=== PATIENT | female | born 1975 | race Caucasian/White ===

== ENCOUNTER → 2016-11-19 | Outpatient (CLI) | payer MEDICARE ==
[~2016-11-19] MED LIST: CLARITIN10 MG PO; DARVOCET N 1001 TAB PO; HYDROCODONE BIT1 T11 PO; IMURAN50 MG PO; KEFLEX500 MG PO; MEDROL DOSEPAK4 MG PO; MOTRIN800 MG PO; PIROXICAN20 MG PO; PREDNICOT20 MG PO; PREDNISONE10 MG PO; REMERON45 MG PO; Rocaltrol0.25 MCG PO; TYLENOL W/CODEI1 TA2 PO; VIBRAMYCIN100 MG PO; VICODIN 500 MG-1 TAB PO; ZITHROMAX Z PA250 MG PO
[2016-11-19 11:16] LABS: BILIRUBIN NEGATIVE (NEGATIVE); BLOOD 1+ (NEGATIVE); CLARITY SL CLOUDY (CLEAR); COLOR YELLOW (YELLOW); GLUCOSE NEGATIVE (NEGATIVE); KETONE NEGATIVE (NEGATIVE); NITRITE NEGATIVE (NEGATIVE); PH 7.5 (5.0-9.0); PROTEIN 3+ (NEGATIVE); SPECIFIC GRAVITY 1.015 (1.005-1.030); UROBILINOGEN 0.2 E.U./dl (0.2-1.0)
[2016-11-19 11:23] LABS: BACTERIA TRACE; LEUKO ESTERASE 2+ (NEGATIVE); WBC 41-50 wbc/hpf (0-5)
[2016-11-19 11:28] LABS: BASO % 0.3 % (0.0-1.0); EOS # 0.5 10*3/uL (0.0-0.4); EOS % 7.7 % (1.0-4.0); HEMATOCRIT 27.4 % (37.0-47.0); HEMOGLOBIN 9.1 g/dl (12.0-16.0); LYMPH # 1.9 10*3/uL (1.3-4.4); LYMPH % 29.6 % (27.0-41.0); MEAN CELL VOLUME 102.2 fl (81.0-99.0); MEAN CORPUSCULAR HGB CONC 33.2 g/dl (33.0-37.0); MEAN PLATELET VOLUME 9.3 fl (9.6-12.3); MONO # 0.7 10*3/uL (0.1-1.0); MONO % 10.3 % (3.0-9.0); NEUT # 3.3 10*3/uL (2.3-7.9); NEUT % 51.6 % (47.0-73.0); PLATELET COUNT AUTOMATED 265 10*3/uL (130-400); RED BLOOD COUNT 2.68 10*6/uL (4.10-5.10); RED CELL DISTRI WIDTH 16.1 % (0-14.5); WHITE BLOOD COUNT 6.5 10*3/uL (4.8-10.8)
[2016-11-19 11:49] LABS: ALBUMIN 3.4 gm/dl (3.1-4.5); ALKALINE PHOSPHATASE 51 U/L (45-117); BILIRUBIN, DIRECT < 0.1 mg/dL (0.0-0.2); BILIRUBIN, TOTAL 0.2 mg/dl (0.2-1.0); BUN 42 mg/dl (7-24); CARBON DIOXIDE 15 mmol/L (21-32); CHLORIDE 119 mmol/L (98-107); EST GLOM FILT AFRICAN AMERICAN 11 ml/min; GLUCOSE 101 mg/dL (65-99); LDH 202 U/L (84-246); MAGNESIUM 2.3 mg/dL (1.5-2.1); PHOSPHOROUS 6.9 mg/dL (2.5-4.9); POTASSIUM 4.4 mmol/L (3.5-5.1); SGOT/AST 10 IU/L (3-35); SGPT/ALT 14 U/L (12-78); SODIUM 145 mmol/L (136-145); TOTAL PROTEIN 6.6 gm/dL (6.4-8.2)
[2016-11-19 12:26] LABS: PTH INTACT 830.3 pg/mL (14.0-72.0); VITAMIN D, 25-HYDROXY 20.1 ng/mL (30-100)
[2016-11-20 08:11] LABS: HEPATITIS B SURFACE AB 006395 Non Reactive (.); HEPATITIS C VIRUS ANTIBODY <0.1 s/co (0.0-0.9)
== END | disposition home or self-care (01) ==
LOC: LAB 10:46
PROVIDERS: Internal Medicine Nephrology
DX: N18.5 Chronic kidney disease, stage 5 (principal); R53.83 Other fatigue

== ENCOUNTER → 2017-02-01 | Outpatient (CLI) | payer MEDICARE ==
[2017-02-01 15:12] LABS: BASO % 0.2 % (0.0-1.0); EOS # 0.5 10*3/uL (0.0-0.4); EOS % 7.7 % (1.0-4.0); HEMATOCRIT 26.5 % (37.0-47.0); HEMOGLOBIN 8.8 g/dl (12.0-16.0); LYMPH # 1.3 10*3/uL (1.3-4.4); LYMPH % 20.7 % (27.0-41.0); MEAN CELL VOLUME 100.8 fl (81.0-99.0); MEAN CORPUSCULAR HGB 33.5 pg (27.0-31.0); MEAN CORPUSCULAR HGB CONC 33.2 g/dl (33.0-37.0); MEAN PLATELET VOLUME 9.8 fl (9.6-12.3); MONO # 0.5 10*3/uL (0.1-1.0); MONO % 8.7 % (3.0-9.0); NEUT # 3.8 10*3/uL (2.3-7.9); NEUT % 62.2 % (47.0-73.0); PLATELET COUNT AUTOMATED 222 10*3/uL (130-400); RED BLOOD COUNT 2.63 10*6/uL (4.10-5.10); RED CELL DISTRI WIDTH 15.7 % (0-14.5); WHITE BLOOD COUNT 6.1 10*3/uL (4.8-10.8)
[2017-02-01 15:40] LABS: ALBUMIN 3.2 gm/dl (3.1-4.5); ALKALINE PHOSPHATASE 43 U/L (45-117); BILIRUBIN, DIRECT < 0.1 mg/dL (0.0-0.2); BILIRUBIN, TOTAL 0.2 mg/dl (0.2-1.0); BUN 49 mg/dl (7-24); CARBON DIOXIDE 17 mmol/L (21-32); CHLORIDE 113 mmol/L (98-107); EST GLOM FILT AFRICAN AMERICAN 11 ml/min; GLUCOSE 87 mg/dL (65-99); PHOSPHOROUS 5.9 mg/dL (2.5-4.9); POTASSIUM 5.4 mmol/L (3.5-5.1); SGOT/AST 11 IU/L (3-35); SGPT/ALT 12 U/L (12-78); SODIUM 144 mmol/L (136-145); TOTAL PROTEIN 6.3 gm/dL (6.4-8.2)
[2017-02-01 15:50] LABS: VITAMIN D, 25-HYDROXY 19.2 ng/mL (30-100)
[2017-02-01 15:51] LABS: PTH INTACT 1326.3 pg/mL (14.0-72.0)
[2017-02-02 15:19] LABS: HEPATITIS B SURFACE AB 006395 Non Reactive (.); HEPATITIS C VIRUS ANTIBODY <0.1 s/co (0.0-0.9)
== END | disposition home or self-care (01) ==
LOC: LAB 14:20
PROVIDERS: Internal Medicine Nephrology
DX: N18.5 Chronic kidney disease, stage 5 (principal); E55.9 Vitamin D deficiency, unspecified; N25.81 Secondary hyperparathyroidism of renal origin; T86.12 Kidney transplant failure

== ENCOUNTER 2017-04-10 13:26 | Emergency (ER) | payer MEDICARE ==
[~2017-04-10] VITALS: Ht 149.8 cm; Wt 51.7 kg
[2017-04-10 14:10] LABS: BASO % 0.2 % (0.0-1.0); EOS # 0.6 10*3/uL (0.0-0.4); EOS % 6.3 % (1.0-4.0); HEMATOCRIT 32.7 % (37.0-47.0); HEMOGLOBIN 10.9 g/dl (12.0-16.0); LYMPH # 1.1 10*3/uL (1.3-4.4); MEAN CELL VOLUME 103.5 fl (81.0-99.0); MEAN CORPUSCULAR HGB 34.5 pg (27.0-31.0); MEAN CORPUSCULAR HGB CONC 33.3 g/dl (33.0-37.0); MEAN PLATELET VOLUME 9.2 fl (9.6-12.3); MONO # 0.8 10*3/uL (0.1-1.0); MONO % 9.2 % (3.0-9.0); NEUT # 6.3 10*3/uL (2.3-7.9); NEUT % 71.6 % (47.0-73.0); PLATELET COUNT AUTOMATED 244 10*3/uL (130-400); RED BLOOD COUNT 3.16 10*6/uL (4.10-5.10); RED CELL DISTRI WIDTH 13.5 % (0-14.5); WHITE BLOOD COUNT 8.8 10*3/uL (4.8-10.8)
[2017-04-10] MEDS ORDERED: Motrin,Rufen800 MG PO (15:10)
== END 2017-04-10 18:27 | disposition home or self-care (01) ==
LOC: ED 13:26
PROVIDERS: Internal Medicine
DX: M25.571 Pain in right ankle and joints of right foot (principal); F17.200 Nicotine dependence, unspecified, uncomplicated; Z88.6 Allergy status to analgesic agent; Z79.899 Other long term (current) drug therapy

== ENCOUNTER → 2017-05-21 | Outpatient (CLI) | payer MEDICARE ==
[~2017-05-21] MED LIST changes: +Motrin,Rufen800 MG PO
== END | disposition home or self-care (01) ==
LOC: ORTHO 00:47
DX: M25.562 Pain in left knee (principal)

== ENCOUNTER 2017-10-19 12:40 | Emergency (ER) | payer MEDICARE ==
[~2017-10-19] VITALS: Ht 149.8 cm; Wt 52.2 kg
[2017-10-19] MEDS ORDERED: PREDNISONE50 MG PO (12:53)
== END 2017-10-19 13:15 | disposition home or self-care (01) ==
LOC: ED 12:40
DX: M72.2 Plantar fascial fibromatosis (principal); F17.200 Nicotine dependence, unspecified, uncomplicated; F10.10 Alcohol abuse, uncomplicated; Z88.8 Allergy status to other drugs, medicaments and biological substances; Z88.5 Allergy status to narcotic agent; Z79.899 Other long term (current) drug therapy

== ENCOUNTER 2019-02-05 12:26 | Emergency (ER) | payer MEDICARE, OTHER ==
[~2019-02-05] VITALS: Ht 149.8 cm; Wt 45.4 kg
[~2019-02-05 12:26] MED LIST changes: +PREDNISONE50 MG PO
[2019-02-05] MEDS ORDERED: AUGMENTIN 875875 MG PO (13:08)
[2019-02-05] MEDS ORDERED: IBUPROFEN600 MG PO (13:08)
[2019-02-05] MEDS ORDERED: TESSALON PERLE100 M1 PO (13:08)
== END 2019-02-05 13:15 | disposition home or self-care (01) ==
LOC: ED 12:26
DX: J02.9 Acute pharyngitis, unspecified (principal); Z79.899 Other long term (current) drug therapy; Z94.0 Kidney transplant status; Z88.5 Allergy status to narcotic agent; Z88.6 Allergy status to analgesic agent

== ENCOUNTER 2019-03-20 23:27 | Emergency (ER) | payer MEDICARE, OTHER ==
[~2019-03-20] VITALS: Wt 47.6 kg
[~2019-03-20 23:27] MED LIST changes: +AUGMENTIN 875875 MG PO; +IBUPROFEN600 MG PO; +TESSALON PERLE100 M1 PO
== END 2019-03-21 01:22 | disposition left against medical advice (07) ==
LOC: ED 23:27
DX: M79.672 Pain in left foot (principal); Z79.899 Other long term (current) drug therapy; Z88.6 Allergy status to analgesic agent

== ENCOUNTER 2019-07-19 12:53 | Emergency (ER) | payer MEDICARE, OTHER ==
[~2019-07-19] VITALS: Ht 149.8 cm; Wt 45.4 kg
[2019-07-19] MEDS ORDERED: ULTRAM50 MG PO (15:05)
== END 2019-07-19 15:36 | disposition home or self-care (01) ==
LOC: ED 12:53
DX: S22.41XA Multiple fractures of ribs, right side, initial encounter for closed fracture (principal); R05 Cough; F17.200 Nicotine dependence, unspecified, uncomplicated; Z88.6 Allergy status to analgesic agent; Z79.2 Long term (current) use of antibiotics; Z79.899 Other long term (current) drug therapy; Z94.0 Kidney transplant status; X58.XXXA Exposure to other specified factors, initial encounter; Y93.89 Activity, other specified; Y92.89 Other specified places as the place of occurrence of the external cause; Y99.8 Other external cause status

== ENCOUNTER → 2019-07-23 | Outpatient (CLI) | payer MEDICARE, OTHER ==
[~2019-07-23] MED LIST changes: +ULTRAM50 MG PO
== END | disposition home or self-care (01) ==
LOC: ORTHO 01:17
DX: M17.12 Unilateral primary osteoarthritis, left knee (principal)

== ENCOUNTER → 2019-08-05 | Outpatient (CLI) | payer MEDICARE, OTHER | END | disposition home or self-care (01) | LOC: MRI 13:40 | DX: M17.12 Unilateral primary osteoarthritis, left knee (principal) ==

== ENCOUNTER 2019-10-21 11:49 | Inpatient (IN) | payer MEDICARE, OTHER ==
[~2019-10-21] VITALS: Ht 147.3 cm; Wt 44.8 kg
[2019-10-21 12:00] VITALS: BP 108/105
--- NOTE | 2019-10-21 12:00 | NUR ---
Sister in with pt at tis time
[2019-10-21 12:15] VITALS: BP 140/96
--- NOTE | 2019-10-21 12:30 | NUR ---
Pt appears more calm at this time and no complaints currently of shortness of breath after duoneb treatment.
[2019-10-21 12:46] VITALS: BP 140/96
[2019-10-21 12:52] LABS: BASO % 0.3 % (0.0-1.0); EOS # 0.2 10*3/uL (0.0-0.4); HEMOGLOBIN 11.3 g/dl (12.0-16.0); LYMPH # 0.9 10*3/uL (1.3-4.4); MEAN CORPUSCULAR HGB CONC 31.4 g/dl (33.0-37.0); MEAN PLATELET VOLUME 10.3 fl (9.6-12.3); MONO # 1.4 10*3/uL (0.1-1.0); MONO % 11.4 % (3.0-9.0); NEUT # 9.7 10*3/uL (2.3-7.9); PLATELET COUNT AUTOMATED 247 10*3/uL (130-400); RED BLOOD COUNT 3.53 10*6/uL (4.10-5.10); RED CELL DISTRI WIDTH 16.1 % (0-14.5); WHITE BLOOD COUNT 12.2 10*3/uL (4.8-10.8)
[2019-10-21 13:02] LABS: ACT PARTIAL THROMBO TIME 26.9 SECONDS (20.0-32.1)
[2019-10-21 13:10] LABS: ALBUMIN 3.2 gm/dl (3.1-4.5); CREATININE 6.5 mg/dL (0.55-1.02); POTASSIUM 5.1 mmol/L (3.5-5.1); TOTAL PROTEIN 6.6 gm/dL (6.4-8.2)
[2019-10-21 13:11] LABS: TROPONIN I 0.018 ng/ml (<0.045)
--- NOTE | 2019-10-21 13:22 | NUR ---
Per pt states she is feeling better at this time and she does not use oxygen at home.Oxygen turned off and pt eating protien bar and drinking apple juice at this time.
[2019-10-21 14:42] VITALS: BP 155/85
--- NOTE | 2019-10-21 14:43 | NUR ---
In to see pt at this time.22 Gauge flushed with good blood return and noticed old bloody drainage around site.
--- NOTE | 2019-10-21 14:44 | NUR ---
No wounds per pt and left knee intact
[2019-10-21 16:00] VITALS: BP 134/98
[2019-10-21] MEDS ORDERED: LABETALOL HCL100 MG PO (16:28)
[2019-10-21] MEDS ORDERED: CITALOPRAM HYDR40 MG PO (16:29)
[2019-10-21] MEDS ORDERED: ROPINIROLE HYDRO1 MG PO (16:29)
--- NOTE | 2019-10-21 16:29 | NUR ---
A 44, admitted to , under the services of CAROLINA Marte MD with a diagnosis of copd, renal failure. Chief complaint is sob today, disn't finish dialysis yesterday d/t sob & cough. Patient arrived via stretcher from ER. Monitor applied. Initial assessment completed. Vital signs taken and recorded. CAROLINA MARTE MD notified of admission to the unit. Orders received. See assessment for past medical history, medications and allergies. Patient and/or family oriented to unit. [facility] visitation policy reviewed. Dr Lindsey here NATALIA CHONG
[2019-10-21] MEDS ORDERED: AURYXIA210 MG PO (16:30)
[2019-10-21] MEDS ORDERED: SODIUM BICARBO650 MG PO (16:30)
--- NOTE | 2019-10-21 16:33 | NUR ---
DR CRUZ AWARE OF MED RECONCILIATION WITH PT AT BEDSIDE AND WITH MED RECONCILIATION.
--- NOTE | 2019-10-21 17:03 | NUR ---
DR GROSS ANSWERING SERVICE NOTIFIED OF CONSULT
[2019-10-21 17:31] LABS: ABG BASE EXCESS -1.6 mmol/L (-2.0-2.0); ARTERIAL BLOOD GAS PH 7.391 (7.35-7.45)
--- NOTE | 2019-10-21 17:31 | NUR ---
PT COMPLAINING OF RIB AND BACK PAIN DUE TO COUGHING AND RATES IT A 8/10. PRN TYLENOL PO IS GIVEN AT THIS TIME.. WILL CONTINUE TO MONITOR FOR EFFECTIVNESS
--- NOTE | 2019-10-21 18:05 | NUR ---
ATIVAN 0.5 MG GIVEN FOR ANXIETY PER DR DOBSON'S ORDER.
[2019-10-21 20:00] VITALS: BP 176/84
--- NOTE | 2019-10-21 23:15 | NUR ---
CALLED DR. TUCKER PT ANXIOUS AND REQUESTING ATIVAN. WAS GIVEN ONE TIME ORDER EARLIER. SOB WITH EXERTION.
--- NOTE | 2019-10-21 23:40 | NUR ---
PT RESTING IN BED WITH HOB ELEVATED. RESP-EASY AND REGULAR. OXYGEN IN USE. PT REQUESTING ATIVAN GIVEN IV PER ORDER, SEE EMAR. FOR ANXIETY. CALL LIGHT IN REACH.
[2019-10-22] VITALS: BP 144/84
--- NOTE | 2019-10-22 00:27 | NUR ---
PT RESTING IN BED WITH EYES CLOSED. RESP-EASY AND REGULAR. OXYGEN IN USE. MEDICATION SEEMS TO BE EFFECTIVE. CALL LIGHT IN REACH.
--- NOTE | 2019-10-22 06:00 | NUR ---
RESTING IN BED WITH EYES CLOSED. RESP-EASY AND REGULAR. CALL LIGHT IN REACH.
[2019-10-22 07:10] LABS: HEMATOCRIT 36.2 % (37.0-47.0); HEMOGLOBIN 11.2 g/dl (12.0-16.0); MEAN CELL VOLUME 101.7 fl (81.0-99.0); MEAN CORPUSCULAR HGB 31.5 pg (27.0-31.0); MEAN CORPUSCULAR HGB CONC 30.9 g/dl (33.0-37.0); MEAN PLATELET VOLUME 10.2 fl (9.6-12.3); PLATELET COUNT AUTOMATED 229 10*3/uL (130-400); RED BLOOD COUNT 3.56 10*6/uL (4.10-5.10); WHITE BLOOD COUNT 13.8 10*3/uL (4.8-10.8)
[2019-10-22 07:14] LABS: ACT PARTIAL THROMBO TIME 26.8 SECONDS (20.0-32.1)
[2019-10-22 07:22] LABS: ALBUMIN 2.9 gm/dl (3.1-4.5); CREATININE 6.78 mg/dL (0.55-1.02); FREE T4 0.76 ng/dl (0.76-1.46); PHOSPHOROUS 8.5 mg/dL (2.5-4.9); POTASSIUM 5.6 mmol/L (3.5-5.1); TOTAL PROTEIN 6.6 gm/dL (6.4-8.2)
[2019-10-22 07:27] LABS: THYROID STIM HORMONE (HS) 1.19 uIU/ml (0.358-4.75)
[2019-10-22 07:50] LABS: OVALOCYTES FEW; PLATELET SUFFICIENCY NORMAL (NORMAL); POLYCHROMASIA SLIGHT; TOTAL CELLS COUNTED 100 #CELLS
[2019-10-22 07:51] LABS: BURR CELLS FEW; VITAMIN D, 25-HYDROXY 21.6 ng/mL (30-100)
[2019-10-22 08:00] VITALS: BP 152/96
--- NOTE | 2019-10-22 09:31 | NUR ---
PATIENT NOT AVAILABLE FOR ECHO, IN DIALYSIS.
--- NOTE | 2019-10-22 09:41 | NUR ---
PATIENT INSTRUCTED ON FLUTTER VALVE
--- NOTE | 2019-10-22 11:00 | NUR ---
Automobile Tester in to see patient. She is not currently in her room. Will follow up at a later time.
[2019-10-22 12:00] VITALS: BP 162/88
--- NOTE | 2019-10-22 13:26 | NUR ---
Senior Compensation Analyst in to see patient. She is currently having an echo performed at bedside. Will follow up at a later time.
--- NOTE | 2019-10-22 13:38 | NUR ---
DR. HERRERA NOTIFIED OF CONSULT.
[2019-10-22 16:00] VITALS: BP 136/64
--- NOTE | 2019-10-22 19:10 | NUR ---
REPORT RECEIVED. PT LYING IN BED AT THIS TIME. O2 INTACT. VOICES NO COMPLAINTS, CALL LIGHT IN REACH
--- NOTE | 2019-10-22 19:48 | NUR ---
24 HR chart check completed.
[2019-10-22 20:00] VITALS: BP 135/105
--- NOTE | 2019-10-22 21:35 | NUR ---
ATIVAN GIVEN PER ORDER FOR COMPLAINTS OF ANXIETY. SEE MAR
--- NOTE | 2019-10-22 23:00 | NUR ---
ATIVAN APPEARS EFFECTIVE, PT SLEEPING
[2019-10-23] VITALS: BP 152/83
[2019-10-23 06:37] LABS: HEMATOCRIT 37.4 % (37.0-47.0); HEMOGLOBIN 11.9 g/dl (12.0-16.0); MEAN CELL VOLUME 100.5 fl (81.0-99.0); MEAN CORPUSCULAR HGB CONC 31.8 g/dl (33.0-37.0); PLATELET COUNT AUTOMATED 239 10*3/uL (130-400); RED BLOOD COUNT 3.72 10*6/uL (4.10-5.10); RED CELL DISTRI WIDTH 15.7 % (0-14.5); WHITE BLOOD COUNT 11.7 10*3/uL (4.8-10.8)
[2019-10-23 06:54] LABS: CREATININE 4.45 mg/dL (0.55-1.02)
[2019-10-23 07:08] LABS: POTASSIUM 3.9 mmol/L (3.5-5.1)
[2019-10-23 07:41] LABS: BASOPHILS 1 % (0-1); PLATELET SUFFICIENCY NORMAL (NORMAL); POLYCHROMASIA SLIGHT; TOTAL CELLS COUNTED 100 #CELLS
[2019-10-23 08:00] VITALS: BP 110/78
--- NOTE | 2019-10-23 08:31 | NUR ---
PT REQUESTED AND GIVEN ATIVAN FOR ANXIETY WILL MONITOR
--- NOTE | 2019-10-23 09:30 | NUR ---
PT RESTING IN BED. EYES CLSOED. ATIVAN APPEARS EFFECTIVE. WILL MONITOR
[2019-10-23 12:00] VITALS: BP 130/83
[2019-10-23 16:00] VITALS: BP 130/70
--- NOTE | 2019-10-23 16:06 | NUR ---
PT REQUESTED AND GIVEN ATIVAN FOR C/O ANXIETY WILL MONITOR
--- NOTE | 2019-10-23 19:30 | NUR ---
REPORT RECEIVED. PT LYING IN BED. VOICES NO COMPLAINTS, CALL LIGHT IN REACH
[2019-10-23 20:00] VITALS: BP 135/89
--- NOTE | 2019-10-23 22:00 | NUR ---
ATIVAN GIVEN PER ORDER FOR ANXIETY. SEE MAR
[2019-10-24] VITALS: BP 156/99
--- NOTE | 2019-10-24 | NUR ---
ATIVAN APPEARS EFFECTIVE, PT SLEEPING AT THIS TIME.
[2019-10-24 01:41] VITALS: BP 158/90
--- NOTE | 2019-10-24 02:00 | NUR ---
PT LYING IN BED AT THIS TIME. NO S/S OF DISTRESS. O2 INTACT. CALL LIGHT IN REACH
--- NOTE | 2019-10-24 04:00 | NUR ---
PT SLEEPING AT THIS TIME. CALL LIGHT IN REACH
--- NOTE | 2019-10-24 07:58 | NUR ---
PT IN BED, YELLING UPSET OVER HER DIET. PT DOESNT WANT TO FOLLOW RENAL DIET PT INSTRUCTED THAT SHE WILL HAVE TO DISCUSS THIS WITH HER
[2019-10-24 08:00] VITALS: BP 184/90
--- NOTE | 2019-10-24 08:47 | NUR ---
PT REQUESTED AND GIVEN ATIVAN FOR ANXIETY. WILL MONITOR
[2019-10-24 12:00] VITALS: BP 132/80
[2019-10-24 16:00] VITALS: BP 142/90
--- NOTE | 2019-10-24 19:51 | NUR ---
PATIENT LAYING IN BED WITH VENTURI MASK. STATES SHE IS "NERVOUS" ABOUT HER BRONCH TOMORROW. STATES SHE CANNOT WAIT UNTIL 10 PM TO GET HER STERIODS AND REQUESTING HER ATIVAN. BED IN LOWEST POSITION, CALL LIGHT IN REACH
[2019-10-24 20:00] VITALS: BP 168/92
--- NOTE | 2019-10-24 20:12 | NUR ---
medicated with prn ativan for anxiousness. patient sitting on side of bed moaning with venturi mask stating "i feel like i cannot breath". vitals stable. will monitor
[2019-10-25] VITALS (16 sets, daily range): BP systolic 113–194; BP diastolic 50–121
--- NOTE | 2019-10-25 07:30 | NUR ---
PT TO SURGERY VIA BED
--- NOTE | 2019-10-25 09:00 | NUR ---
Stain Applicator in to see patient. She is currently not in her room. Will follow up at a later time.
--- NOTE | 2019-10-25 10:04 | NUR ---
REPORT GIVEN TO [facility]
--- NOTE | 2019-10-25 10:15 | NUR ---
PATIENT RECIEVED FROM SURGERY AT THIS TIME, PER SURGICAL STAFF THAT ESCORTED PATIENT, PATIENT WAS EXPERIENCING SEVERE ANXIETY AND DIFFICULTY BREATHING POST BRONCH AND WAS SUBSEQUENTLY INTUBATED. PATIENT ARRIVES TO ICU BEING MECHANICALLY VENTILATED WHILE AWAITING FOR THE VENTILATOR TO ARRIVE. PATIENT APPEARS UNCOMFORTABLE AND COUGHING. THE STEEL BOX TOE INSERTER FROM SURGERY ADMINISTERED IV PUSH OF PROPOFOL TO HELP CALM PATIENT. VITAL SIGNS ARE STABLE,SEE SCREEN. ASSESSMENT DONE AT THIS TIME. LYNCH CATHETER AND OG TUBE INSERTED AT THIS TIME PER POLICY. PATIENT TOLERATED WELL. RN WILL CONTINUE TO MONITOR
--- NOTE | 2019-10-25 11:25 | NUR ---
DR GROSS OFFICE AWARE OF PATIENT BEING TRANSFERRED TO ICU AFTER BRONCH, STATE THEY WILL PASS ALONG
--- NOTE | 2019-10-25 11:30 | NUR ---
PRN VERSED GIVEN AT THIS TIME FOR AGITATION. RN WILL MONITOR THIS PATIENT
--- NOTE | 2019-10-25 12:05 | NUR ---
DR HERRERA CALLED IN REGARDING ABG'S. PER ORDER TV CHANGED TO 45O AND TO REPEAT ABFS IN 2HRS.
[2019-10-25 12:07] LABS: ABG BASE EXCESS -2.3 mmol/L (-2.0-2.0); ARTERIAL BLOOD GAS PH 7.331 (7.35-7.45)
--- NOTE | 2019-10-25 12:30 | NUR ---
PATIENT MEDICATED WITH VERSED FOR INCREASED AGITATION. PATIENT PULLING AT RESTRAINTS, COUGHING AND KICKING LEGS IN LEGS. AT ONE POINT PATIENT EVEN ATTEMPTED TO SWING LEGS UP OVER THE SIDERAILS. RN WILL MONITOR FOR EFFECTIVENESS
--- NOTE | 2019-10-25 12:45 | NUR ---
ETT PULLED BACK 2 CMS FROM 24 TO 22 @ THE LIP. POST CXR RESULTS. NO RES DISTRESS NOTED. ALARMS REMAIN AUDIBLE. EQUAL BILATERAL BREATH SOUNDS ASCULTATED. WILL CONTINUE TO MONITOR.
[2019-10-25 13:07] LABS: BILIRUBIN 1+ (NEGATIVE); BLOOD TRACE-INTACT (NEGATIVE); CLARITY CLEAR (CLEAR); COLOR YELLOW (YELLOW); GLUCOSE 1+ (NEGATIVE); KETONE NEGATIVE (NEGATIVE); LEUKO ESTERASE NEGATIVE (NEGATIVE); NITRITE NEGATIVE (NEGATIVE); PH 7.5 (5.0-9.0); UROBILINOGEN 0.2 E.U./dl (0.2-1.0)
[2019-10-25 13:09] LABS: BACTERIA TRACE; MUCOUS TRACE
[2019-10-25 13:39] LABS: BASO % 0.2 % (0.0-1.0); EOS % 0.1 % (1.0-4.0); HEMATOCRIT 35.6 % (37.0-47.0); HEMOGLOBIN 10.8 g/dl (12.0-16.0); LYMPH # 1.2 10*3/uL (1.3-4.4); LYMPH % 9.6 % (27.0-41.0); MEAN CELL VOLUME 103.8 fl (81.0-99.0); MEAN CORPUSCULAR HGB 31.5 pg (27.0-31.0); MEAN CORPUSCULAR HGB CONC 30.3 g/dl (33.0-37.0); MEAN PLATELET VOLUME 10.3 fl (9.6-12.3); MONO # 1.1 10*3/uL (0.1-1.0); MONO % 8.4 % (3.0-9.0); NEUT # 10.2 10*3/uL (2.3-7.9); NEUT % 80.6 % (47.0-73.0); PLATELET COUNT AUTOMATED 249 10*3/uL (130-400); RED BLOOD COUNT 3.43 10*6/uL (4.10-5.10); RED CELL DISTRI WIDTH 15.6 % (0-14.5); WHITE BLOOD COUNT 12.7 10*3/uL (4.8-10.8)
--- NOTE | 2019-10-25 13:39 | NUR ---
VERSED GIVEN FOR AGITATION. PATIENT COUGHING, PULLING AT WRIST RESTRAINTS. AND KICKING LEGS AROUND THE BED.
--- NOTE | 2019-10-25 13:40 | NUR ---
VERSED GIVEN PATIENT WAS SITTING UP IN THE BED
--- NOTE | 2019-10-25 13:45 | NUR ---
DIALYSIS NURSE HERE TO DO TREATMENT. PATIENT IS SCHEDULED Wednesdays AND FRIDAYS BUT PATIENT HAS BEEN VERY NON-COMPLIANT PER DIALYSIS NURSE AND USUALLY ONLY GOES TO DIAYLSIS ONCE A WEEK AND SOMETIMES ONLY ONCE A MONTH.
[2019-10-25 13:51] LABS: ALBUMIN 2.8 gm/dl (3.1-4.5); CREATININE 6.65 mg/dL (0.55-1.02); PHOSPHOROUS 7.8 mg/dL (2.5-4.9); POTASSIUM 5.3 mmol/L (3.5-5.1)
--- NOTE | 2019-10-25 14:30 | NUR ---
PRN VERSED GIVEN AT THIS TIME, PATIENT IS AGITATED, KICKING LEGS AROUND THE BED. RN WILL CONTINUE TO MONITOR
[2019-10-25 14:58] LABS: ABG BASE EXCESS 3.1 mmol/L (-2.0-2.0); ARTERIAL BLOOD GAS PH 7.401 (7.35-7.45)
--- NOTE | 2019-10-25 15:06 | NUR ---
Electronic Parts Salesperson in to see patient. She is currently intubated and receiving dialysis at the bedside. Discharge plan undecided at this time. Will follow up at a later time.
--- NOTE | 2019-10-25 15:30 | NUR ---
PATIENT MEDICATED WITH VERSED PER DRS ORDERS. PATIENT CONTINUES TO BE AGITATED AND RESTLESS. SQUIRMING ALL OVER THE BED. RN WILL MONITOR FOR EFFECTIVENESS
--- NOTE | 2019-10-25 16:12 | NUR ---
SPOKE WITH DR HERRERA REGARDING PATIENTS PLAN OF CARE. STATES TO TRY THE PATIENT ON CPAP AND IF SHE TOLERATES TEN GET A ABG 2 HOURS AFTER THE START OF THE CPAP TRIAL. DR HERRERA AWARE THAT PATIENT IS VERY RESTLESS AND AGITATED. ALSO THE PATIENT IS RECIEVING DIALYSIS.
--- NOTE | 2019-10-25 16:30 | NUR ---
DIALYSIS COMPLETED AT THIS TIME. PER DIALYSIS NURSE THEY TOOK OFF 4KILOS.
--- NOTE | 2019-10-25 17:30 | NUR ---
PATIENT ON CPAP MODE AT THIS TIME. APPEARS TO BE TOLERATING WELL. PULSE OXIMETRY REMAINS IN UPPER 90'S. HEARTRATE REMAINS 80-90'S. PATIENT IS NO LONGER KICKING LEGS AND THRASHING ABOUT BED.
[2019-10-25 19:33] LABS: ABG BASE EXCESS 7.1 mmol/L (-2.0-2.0); ARTERIAL BLOOD GAS PH 7.479 (7.35-7.45)
--- NOTE | 2019-10-25 19:48 | NUR ---
DR. HERRERA CALLED WITH ABG RESULTS. ORDERS RECEIVED.
--- NOTE | 2019-10-25 19:49 | NUR ---
Patient placed back into AC/VC for the evening per Dr. Welch's orders.
--- NOTE | 2019-10-25 20:26 | NUR ---
2000 PT VERY RESTLESS AND TRYING TO SIT UP IN THE BED. DIPRIVAN AT 50MICS. VERSED 5MG IV FOR RESTLESSNESS AND AGITATION AND IMMEDIATLEY EFFECTIVE. NPO. ORAL AND EYE CARE DONE. OGT INTACT WITH TF MAINTAINTED. PLACEMENT CONFIRMED WITH AIR BOLUS/AUSCULTATION. PULSE OX 100% ON 40% FIO2 VIA VENT. WRIST RESTRTAINTS INTACT BILATERALLY. CIRCULATION ADEQUATE. LYNCH PATENT AND DRAINING CLEAR ALEX URINE.
--- NOTE | 2019-10-25 21:35 | NUR ---
2100 VERY RESTLESS AND ATTEMPTING TO REACH FOR ET TUBE.KICKING LEGS. VERSED 5MG IV AND EFFECTIVE.
--- NOTE | 2019-10-25 22:11 | NUR ---
2144 COMPLETE BED BATH GIVEN AND LINENS CHANGED. 2199 VERSED 5MG IV GIVEN FOR AGITATION AND EFFECTIVE. REPOSITIONED.
[2019-10-26] VITALS (11 sets, daily range): BP systolic 115–171; BP diastolic 54–93
--- NOTE | 2019-10-26 00:34 | NUR ---
2300 PT SITTING UP IN THE BED AGAIN. VERSED IV FOR AGITATION. EFFECTIVE.
--- NOTE | 2019-10-26 01:47 | NUR ---
0045 VERSED 5MG IV FOR AGITATION AND RESTLESSNESS. EFFECTIVE.
--- NOTE | 2019-10-26 03:01 | NUR ---
0230 TRYING TO TURN OVER IN THE BED. VWERSED IV FOR THIS. 0300 ATIVAN 0.5MG GIVEN VIA OGT FOR CONT AGITITATION AND RESTLESSNESS. WILL MONITOR.
--- NOTE | 2019-10-26 04:10 | NUR ---
0340 VERSED 5MG IV AGAIN FOR CONT RESTLESSNESS.
[2019-10-26 05:34] LABS: ALBUMIN 2.7 gm/dl (3.1-4.5); CREATININE 4.22 mg/dL (0.55-1.02); PHOSPHOROUS 5.7 mg/dL (2.5-4.9); TOTAL PROTEIN 5.6 gm/dL (6.4-8.2)
--- NOTE | 2019-10-26 05:37 | NUR ---
0535 VERSED 5MG IV FOR CONT AGITATION AND RESTLESSNESS. EFFECTIVE.
[2019-10-26 05:41] LABS: POTASSIUM 4.1 mmol/L (3.5-5.1)
--- NOTE | 2019-10-26 06:08 | NUR ---
RESTING IN BED WITH EYES CLOSED. TF CONT VIA OGT. ET SECURE TO VENT. PULSE OX 100%. DIPRIVAN GTT CONT. NO DISTRESS NOTED. CONDITION GUARDED.
[2019-10-26 06:22] LABS: HEMATOCRIT 33.4 % (37.0-47.0); HEMOGLOBIN 10.5 g/dl (12.0-16.0); MEAN CELL VOLUME 101.5 fl (81.0-99.0); MEAN CORPUSCULAR HGB 31.9 pg (27.0-31.0); MEAN CORPUSCULAR HGB CONC 31.4 g/dl (33.0-37.0); MEAN PLATELET VOLUME 10.3 fl (9.6-12.3); PLATELET COUNT AUTOMATED 226 10*3/uL (130-400); RED BLOOD COUNT 3.29 10*6/uL (4.10-5.10); RED CELL DISTRI WIDTH 15.2 % (0-14.5); WHITE BLOOD COUNT 11.2 10*3/uL (4.8-10.8)
[2019-10-26 06:52] LABS: ATYPICAL LYMPHS 4 % (0-0); OVALOCYTES FEW; TOTAL CELLS COUNTED 100 #CELLS
[2019-10-26 06:53] LABS: PLATELET SUFFICIENCY NORMAL (NORMAL); POLYCHROMASIA SLIGHT
--- NOTE | 2019-10-26 08:18 | NUR ---
Shift chart check completed.24 HR chart check completed.
--- NOTE | 2019-10-26 08:23 | NUR ---
ON ASSESSMENT PT WAS AWAKE AND RESPONSIVE ON DIPRIVAN AT 50MCG/KG/MIN. AFTER REPORT WAS GIVEN AND ASSESSMENT DONE AND ABLE TO STAY IN CLOSE OBSERVATION HER DIPRIVAN WAS TURNED COMPLETELY OFF AND AT 0750 SHE WAS PLACED ON C-PAP5, PS-10. PT EXTREMELY ANXIOUS AND REQUIRES CONSTANT REASSURANCES. FAN PLACED AT BEDSIDE. HER RESTRAINTS ARE ON WITH NO CIRCULATION IMPAIRMENT. LEFT ARM FISTULA POSITIVE THRILL AND BRUIT. TWO HEP LOCKS RT ARM. LYNCH PATENT CLEAR YELLOW URINE. OGT IN PLACE. TUBE FEEDINGS OFF FOR THE WEANING PROCESS. SEE ALL APPROPRIATE INTERVENTIONS.
--- NOTE | 2019-10-26 08:54 | NUR ---
AT PRESENT PT RESTING IN BED, FAN AT THE BEDSIDE. RR 22. HR 88. TOLERATING CPAP. BANGS THE RAILS, POINTING TO THE TUBE. REASSURANCES AND EXPLANATIONS GIVEN.
--- NOTE | 2019-10-26 09:10 | NUR ---
ATIVAN VIA OGT FOR ANXIETY.
--- NOTE | 2019-10-26 09:17 | NUR ---
DR HERRERA HAS VISITED. PT REMAINS ANXIOUS. HE PLACED HER BACK ON A/C AND ORDERED Q1H HALDOL.
--- NOTE | 2019-10-26 09:19 | NUR ---
PER DR HERRERA'S DIRECTION PROPOFOL RESTARTED AT 30MCG/KG/MIN. PT CALMER NOW.
--- NOTE | 2019-10-26 09:30 | NUR ---
Grease Remover in to see patient. She is currently intubated. Discharge plan undecided at this time. Will follow up at a later time.
--- NOTE | 2019-10-26 10:11 | NUR ---
PT APPEARS MUCH MORE COMFORTABLE ON DIPRIVAN AT 30MCG/KG/MIN. SHE'S REPOSITIONED HERSELF TO SIDE AND APPEARS TO BE ASLEEP.
--- NOTE | 2019-10-26 12:48 | NUR ---
NEW IV SITE OBTAINED RT FOREARM. PT RESTING COMFORTABLY. DIPRIVAN IS AT 20MCG/KG/MIN. 3 OF 4 DOSES OF HALDOL HAVE BEEN GIVEN.
--- NOTE | 2019-10-26 13:03 | NUR ---
HALDOL AGAIN GIVEN PER ORDER. DIPRIVAN TO 15MCG/KG/MIN.
[2019-10-26 13:05] LABS: ACID FAST SPEC PROCESSING Concentration (.)
--- NOTE | 2019-10-26 13:23 | NUR ---
MESSAGE LEFT AT DR HERRERA'S OFFICE TO CALL ME BACK FOR CONDITION UPDATE.
--- NOTE | 2019-10-26 19:53 | NUR ---
PT TOLERATING CPAP AT THIS TIME. PULSE OX 100% RR 16/MIN. SHE IS DOZING BUT OPENS HER EYES TO VERBAL AND TACTILE STIMULATION. BODY RELAXED.
[2019-10-26 20:54] LABS: ABG BASE EXCESS 3.8 mmol/L (-2.0-2.0); ARTERIAL BLOOD GAS PH 7.428 (7.35-7.45)
--- NOTE | 2019-10-26 20:59 | NUR ---
DR HERRERA NOTIFIED OF ABG'S AND PT DROWSINESS. ORDERS RECEIVED AND RESP DEPT NOTIFIED.
--- NOTE | 2019-10-26 22:31 | NUR ---
HALDOL GIVEN AT 2200 FOR RELAXATION EFFECTIVE. PT'S COMPLETE BATH AND BED LINEN CHANGE DONE. PT ASSISTED, WAS APPROPRIATE, COOPERATIVE, AND CALM.
--- NOTE | 2019-10-26 23:00 | NUR ---
RETURNED TO PREVIOUS AC VENT SETTINGS.
[2019-10-27] VITALS: BP 157/72
--- NOTE | 2019-10-27 02:20 | NUR ---
PT ANXIOUS, ALARMING VENT, ASSISTED WITH POSITIONING, FAN PLACED PER PT REQUEST, ENCOURAGED PT TO SLOW BREATHING AND REMAIN CALM. MEDICATED WITH HALDOL ORDERED.
--- NOTE | 2019-10-27 02:27 | NUR ---
HALDOL WAS NOT EFFECTIVE. PT SITTING STRAIGHT UP, SLAPPING BED WITH BOTH HANDS AND THRASHING HEAD SIDE TO SIDE. HR 110'S. MEDICATED WITH VERSED.
--- NOTE | 2019-10-27 03:38 | NUR ---
VERSED BECAME EFFECTIVE AT APPROXIMATELY 0300 WHEN PT STOPPED GAGGING AND BITING ON ETT AND RESPIRATIONS SLOWED SHE CALMED DOWN. SHE IS NOW CALM BUT AWAKENS AND COMMUNICATES EASILY.
[2019-10-27 04:00] VITALS: BP 166/67
--- NOTE | 2019-10-27 04:51 | NUR ---
HALDOL ORDERED AT 0445 TO PROMOTE RELAXATION PT AGITATED WITH AM LAB DRAWS AND ANXIETY IN GENERAL.
[2019-10-27 05:31] LABS: ALBUMIN 2.7 gm/dl (3.1-4.5); CREATININE 5.79 mg/dL (0.55-1.02); PHOSPHOROUS 8.5 mg/dL (2.5-4.9); POTASSIUM 4.5 mmol/L (3.5-5.1); TOTAL PROTEIN 5.9 gm/dL (6.4-8.2)
[2019-10-27 05:58] LABS: MEAN CORPUSCULAR HGB 31.4 pg (27.0-31.0); MEAN CORPUSCULAR HGB CONC 31.4 g/dl (33.0-37.0); MEAN PLATELET VOLUME 10.1 fl (9.6-12.3); PLATELET COUNT AUTOMATED 241 10*3/uL (130-400); WHITE BLOOD COUNT 10.4 10*3/uL (4.8-10.8)
[2019-10-27 06:23] LABS: ATYPICAL LYMPHS 1 % (0-0); OVALOCYTES FEW; TOTAL CELLS COUNTED 100 #CELLS
[2019-10-27 06:24] LABS: PLATELET SUFFICIENCY NORMAL (NORMAL); SCHISTOCYTES FEW
[2019-10-27 07:46] LABS: ABG BASE EXCESS 1.6 mmol/L (-2.0-2.0); ARTERIAL BLOOD GAS PH 7.395 (7.35-7.45)
[2019-10-27 08:00] VITALS: BP 170/74
--- NOTE | 2019-10-27 08:00 | NUR ---
DIALYSIS STARTED. PT RESTING. AWAKENS WITH STIMULI. PT REMAINS INTUBATED AND SEDATED WITH PRN HALDOL AND VERSED. DIFFUSE RHONCHI NOTED IN LUNG WAGNER. OGT PLACEMENT VERIFIED WITH AN AIR BOLUS. ABD SOFT WITH ACTIVE BOWEL SOUNDS. LYNCH PATENT FOR CLEAR, STRAW COLORED URINE. NO PERIPHERAL EDEMA NOTED.
--- NOTE | 2019-10-27 09:35 | NUR ---
PT AWAKE, RESTLESS AND AGITATED. MEDICATED PT PER PRN ORDER WITH VERSED.
--- NOTE | 2019-10-27 09:44 | NUR ---
DR HERRERA IN TO SEE PT.
--- NOTE | 2019-10-27 09:50 | NUR ---
PT RESTING. EARLIER VERSED EFFECTIVE.
[2019-10-27 12:00] VITALS: BP 150/79
--- NOTE | 2019-10-27 12:00 | NUR ---
RESP. THERAPIST CHANGED VENT SETTINGS TO CPAP 12/25. WILL CONTINUE TO MONITOR PT.
--- NOTE | 2019-10-27 12:13 | NUR ---
EDUCATED PT ON CPAP TRIAL AND POST EXTUBATION. PT TOLERATING CPAP WELL AT THIS TIME.
--- NOTE | 2019-10-27 12:41 | NUR ---
PT RESTING. RESP RATE 16, POX 99%, HR 77. PT TOLERATING CPAP WELL AT THIS TIME. WILL CONTINUE TO MONITOR PT.
[2019-10-27 13:56] LABS: ABG BASE EXCESS 5.9 mmol/L (-2.0-2.0); ARTERIAL BLOOD GAS PH 7.447 (7.35-7.45)
--- NOTE | 2019-10-27 14:34 | NUR ---
PT EXTUBATED TO BIPAP AFTER ORDERS RECEIVED FROM DR HERRERA. PT EDUUCATED ON WEARING BIPAP AND NPO STATUS. PT VERBALIZED UNDERSTANDING.
[2019-10-27 16:00] VITALS: BP 142/76
--- NOTE | 2019-10-27 17:55 | NUR ---
PT TAKEN OFF OF BIPAP BY RESP.THERAPIST. 2L NASAL CANNULA APPLIED. POX 95% PT TOLERATING LIQUIDS WELL. DINNER ORDERED.
[2019-10-27 20:00] VITALS: BP 160/85
--- NOTE | 2019-10-27 20:53 | NUR ---
EATING MULTIPLE SNACKS. TOLERATING NASAL CANNULA WELL. APPEARS TO BE CALM AND PLEASANT AT THIS TIME.
--- NOTE | 2019-10-27 21:07 | NUR ---
PT DECLINING BATH AND SHAMPOO AT THIS TIME.
--- NOTE | 2019-10-27 22:48 | NUR ---
PT DOZING. BODY RELAXED.
[2019-10-28] VITALS: BP 119/51
--- NOTE | 2019-10-28 01:32 | NUR ---
2316 PATIENT REFUSING BIPAP. 2L NC IN USE. SPO2 96%
[2019-10-28 04:00] VITALS: BP 142/61
[2019-10-28 06:16] LABS: BASO % 0.2 % (0.0-1.0); EOS # 0.1 10*3/uL (0.0-0.4); EOS % 0.8 % (1.0-4.0); HEMATOCRIT 39.3 % (37.0-47.0); HEMOGLOBIN 12.2 g/dl (12.0-16.0); LYMPH # 2.8 10*3/uL (1.3-4.4); LYMPH % 20.1 % (27.0-41.0); MEAN CELL VOLUME 99.7 fl (81.0-99.0); MEAN PLATELET VOLUME 9.7 fl (9.6-12.3); MONO # 1.4 10*3/uL (0.1-1.0); MONO % 10.4 % (3.0-9.0); NEUT # 9.2 10*3/uL (2.3-7.9); PLATELET COUNT AUTOMATED 244 10*3/uL (130-400); RED BLOOD COUNT 3.94 10*6/uL (4.10-5.10); RED CELL DISTRI WIDTH 14.5 % (0-14.5); WHITE BLOOD COUNT 13.7 10*3/uL (4.8-10.8)
[2019-10-28 06:49] LABS: ALBUMIN 2.6 gm/dl (3.1-4.5); POTASSIUM 3.7 mmol/L (3.5-5.1)
[2019-10-28 06:53] LABS: CREATININE 4.21 mg/dL (0.55-1.02); PHOSPHOROUS 4.3 mg/dL (2.5-4.9); TOTAL PROTEIN 5.6 gm/dL (6.4-8.2)
[2019-10-28 08:00] VITALS: BP 164/87
--- NOTE | 2019-10-28 08:00 | NUR ---
PT AAOX3. VSS. LUNG WAGNER DIM. BUT CLEAR. POX 95% ON 2L NC. PT STATES SHE HAS A NONPRODUCTIVE COUGH. LYNCH PATENT FOR CLEAR, STRAW COLORED URINE. NO PERIPHERAL EDEMA NOTED. PT DENIES COMPLAINTS AT PRESENT TIME. NO ACUTE DISTRESS NOTED.
--- NOTE | 2019-10-28 09:18 | NUR ---
DR HERRERA IN TO SEE PT.
--- NOTE | 2019-10-28 09:34 | NUR ---
PT REFUSED A BATH AT THIS TIME. SHE STATED SHE WANTS TO SLEEP. WILL OFFER AGAIN LATER.
--- NOTE | 2019-10-28 11:00 | NUR ---
DR CORREA IN TO SEE PT.
[2019-10-28 12:00] VITALS: BP 166/84
--- NOTE | 2019-10-28 12:18 | NUR ---
DR GROSS IN TO SEE PT.
--- NOTE | 2019-10-28 13:33 | NUR ---
Digital Communications Manager in to talk to patient. Patient states lives at home with her mother. There are 4 steps in the home. Physician: Dr. Rudd [facility] Home health services: none Patient's level of ADLs: INDEPENDENT Patient has working utilities: yes DME: none Follow-up physician's appointment after d/c: she prefers to make her own follow up appt after discharge Does patient want to access PORTAL?: no Discharge plan discussed with patient. She lives at home and takes care of her mother. She is independent in her ADLs and ambulation. Discussed short term SNF and home health care services and she denies any home needs. When medically stable she will be discharged to home. She states her sister will provide transportation on discharge. She is HD MWF, chair time is 1030, and [employer] transports. ELISHA SOTO
[2019-10-28 16:00] VITALS: BP 150/66
--- NOTE | 2019-10-28 16:02 | NUR ---
PT EATING DINNER. PT DENIES COMPLAINTS. NO ACUTE DISTRESS NOTED.
--- NOTE | 2019-10-28 16:39 | NUR ---
LYNCH D/C'D INTACT. PARTIAL BATH GIVEN. BED LINENS CHANGED. PT UP TO CHAIR WITH MINIMAL ASSIST.
[2019-10-28 20:00] VITALS: BP 137/80
--- NOTE | 2019-10-28 23:54 | NUR ---
PATIENT REFUSING TO WEAR BIPAP
[2019-10-29] VITALS: BP 138/69
--- NOTE | 2019-10-29 00:45 | NUR ---
A 44, admitted to ICCU, under the services of CAROLINA Marte MD with a diagnosis of ETOH WITHDRAWL. Chief complaint is WITHDRAWL FROM ETOH. Patient arrived via wheelchair from ER. Monitor applied. Initial assessment completed. Vital signs taken and recorded. CAROLINA MARTE MD notified of admission to the unit. Orders received. See assessment for past medical history, medications and allergies. Patient and/or family oriented to unit. [facility] visitation policy reviewed. Clothing/patient valuable form completed. BAKARI DON
[2019-10-29 05:09] LABS: ALBUMIN 2.5 gm/dl (3.1-4.5); CREATININE 5.15 mg/dL (0.55-1.02); PHOSPHOROUS 4.3 mg/dL (2.5-4.9); TOTAL PROTEIN 5.7 gm/dL (6.4-8.2)
[2019-10-29 07:29] LABS: HEMATOCRIT 38.5 % (37.0-47.0); HEMOGLOBIN 12.2 g/dl (12.0-16.0); MEAN CORPUSCULAR HGB CONC 31.7 g/dl (33.0-37.0); MEAN PLATELET VOLUME 10.3 fl (9.6-12.3); PLATELET COUNT AUTOMATED 283 10*3/uL (130-400); RED BLOOD COUNT 3.81 10*6/uL (4.10-5.10); RED CELL DISTRI WIDTH 14.3 % (0-14.5); WHITE BLOOD COUNT 17.2 10*3/uL (4.8-10.8)
[2019-10-29 07:56] LABS: PLATELET SUFFICIENCY NORMAL (NORMAL); TOTAL CELLS COUNTED 100 #CELLS
[2019-10-29 08:00] VITALS: BP 152/84
--- NOTE | 2019-10-29 09:00 | NUR ---
Tobacco Drier Operator in to see patient. No new needs or request at this time. She denies any home needs. When medically stable she will be discharged to home.
[2019-10-29 12:00] VITALS: BP 123/84
--- NOTE | 2019-10-29 15:55 | NUR ---
ASSESSMENT FOR HOME O2 SPO2 @ REST: 94% ON ROOM AIR HR 90 BP 124/80 SPO2 WITH EXERTION: ROOM AIR 88% HR 96 SPO2 WITH EXERTION: 2L NC 95% HR 90 RECOVERY SPO2 96% ON 2L NC HR 94 BP 120/64 PT. REQUIRED 2L OF SUPPLEMENTAL O2 DURING AMBULATION. RN NOTIFIED.
[2019-10-29 16:00] VITALS: BP 120/64
[2019-10-29 20:00] VITALS: BP 116/75
[2019-10-30] VITALS: BP 157/76
--- NOTE | 2019-10-30 02:11 | NUR ---
24 hour chart check complete
[2019-10-30 06:59] LABS: HEMATOCRIT 38.3 % (37.0-47.0); HEMOGLOBIN 11.9 g/dl (12.0-16.0); MEAN CELL VOLUME 99.7 fl (81.0-99.0); MEAN CORPUSCULAR HGB CONC 31.1 g/dl (33.0-37.0); MEAN PLATELET VOLUME 9.9 fl (9.6-12.3); PLATELET COUNT AUTOMATED 299 10*3/uL (130-400); RED BLOOD COUNT 3.84 10*6/uL (4.10-5.10); WHITE BLOOD COUNT 18.7 10*3/uL (4.8-10.8)
[2019-10-30 07:16] LABS: ALBUMIN 2.7 gm/dl (3.1-4.5); POTASSIUM 3.8 mmol/L (3.5-5.1)
[2019-10-30 07:21] LABS: CREATININE 4.34 mg/dL (0.55-1.02); PHOSPHOROUS 4.1 mg/dL (2.5-4.9); TOTAL PROTEIN 5.8 gm/dL (6.4-8.2)
[2019-10-30 07:41] LABS: TOTAL CELLS COUNTED 100 #CELLS
[2019-10-30 07:42] LABS: OVALOCYTES FEW; PLATELET SUFFICIENCY NORMAL (NORMAL); SCHISTOCYTES FEW
[2019-10-30 07:44] LABS: BASOPHILS 1 % (0-1)
[2019-10-30 12:00] VITALS: BP 127/70
[2019-10-30 16:00] VITALS: BP 143/74
[2019-10-30] MEDS ORDERED: PREDNISONE10 MG PO (16:34)
[2019-10-30] MEDS ORDERED: DOXYCYCLINE100 M3 PO (16:34)
--- NOTE | 2019-10-30 17:40 | NUR ---
PT STANDING AT NURSES STATION AGITATED AND DEMANDING TO LEAVE PT STATED SHE "WAITYED ALL DAY FOR THE O2 AND WONT HAVE A RIDE HOME." NOTIFIED TYPE ROLLING MACHINE OPERATOR GARY WELL RT MIGUE CARTER. MIGUE CARTER CALLED [employer] AND THEY STATED LABORATORY IMMUNOLOGIST WAS ENROUTE. PT DEMANDED O2 TO BE DELIVERED AT HOME. MIGUE INFORMED LABORATORY IMMUNOLOGIST TO DELIVER TO PT ADDRESS. PT LEFT THE BUILDING WITH O2 DOCUMENTATION FOR O2 COMPANY.
--- NOTE | 2019-10-30 17:45 | NUR ---
Discharge instructions reviewed with patient/family. Patient receptive and verbalizes understanding. Follow-up care arranged. Written instructions given to patient/family. BENJAMIN SILVERMAN
== END 2019-10-30 20:10 | disposition home or self-care (01) | DRG 871 ==
LOC: ED 11:49 → 4E 14:21 → ICCU 14:21 → EDHOLD 14:21 → 4E 15:21 → ICCU 15:52 → 4E 15:52 → ICCU 15:52 → 4E 10-29 18:18
PROVIDERS: Emergency Medicine; Hospitalist; Internal Medicine Critical Care Medicine; Internal Medicine Nephrology; ADMIT Internal Medicine
PROC: 5A1D70Z Performance of Urinary Filtration, Intermittent, Less than 6 Hours Per Day (ICD-10-PCS; principal; 2019-10-20)
PROC: 5A1D70Z Performance of Urinary Filtration, Intermittent, Less than 6 Hours Per Day (ICD-10-PCS; 2019-10-22)
PROC: 0BC68ZZ Extirpation of Matter from Right Lower Lobe Bronchus, Via Natural or Artificial Opening Endoscopic (ICD-10-PCS; 2019-10-25)
PROC: 0BC98ZZ Extirpation of Matter from Lingula Bronchus, Via Natural or Artificial Opening Endoscopic (ICD-10-PCS; 2019-10-25)
PROC: 0BCB8ZZ Extirpation of Matter from Left Lower Lobe Bronchus, Via Natural or Artificial Opening Endoscopic (ICD-10-PCS; 2019-10-25)
PROC: 5A1D70Z Performance of Urinary Filtration, Intermittent, Less than 6 Hours Per Day (ICD-10-PCS; 2019-10-25)
PROC: 0BC88ZZ Extirpation of Matter from Left Upper Lobe Bronchus, Via Natural or Artificial Opening Endoscopic (ICD-10-PCS; 2019-10-25)
PROC: 5A1945Z Respiratory Ventilation, 24-96 Consecutive Hours (ICD-10-PCS; 2019-10-25)
PROC: 0BC18ZZ Extirpation of Matter from Trachea, Via Natural or Artificial Opening Endoscopic (ICD-10-PCS; 2019-10-25)
PROC: 0BC58ZZ Extirpation of Matter from Right Middle Lobe Bronchus, Via Natural or Artificial Opening Endoscopic (ICD-10-PCS; 2019-10-25)
PROC: 0BH17EZ Insertion of Endotracheal Airway into Trachea, Via Natural or Artificial Opening (ICD-10-PCS; 2019-10-25)
PROC: 0BC78ZZ Extirpation of Matter from Left Main Bronchus, Via Natural or Artificial Opening Endoscopic (ICD-10-PCS; 2019-10-25)
PROC: 0BC38ZZ Extirpation of Matter from Right Main Bronchus, Via Natural or Artificial Opening Endoscopic (ICD-10-PCS; 2019-10-25)
PROC: 0BC48ZZ Extirpation of Matter from Right Upper Lobe Bronchus, Via Natural or Artificial Opening Endoscopic (ICD-10-PCS; 2019-10-25)
PROC: 5A1D70Z Performance of Urinary Filtration, Intermittent, Less than 6 Hours Per Day (ICD-10-PCS; 2019-10-27)
PROC: 5A09357 Assistance with Respiratory Ventilation, Less than 24 Consecutive Hours, Continuous Positive Airway Pressure (ICD-10-PCS; 2019-10-27)
PROC: 5A1D70Z Performance of Urinary Filtration, Intermittent, Less than 6 Hours Per Day (ICD-10-PCS; 2019-10-29)
DX: A41.9 Sepsis, unspecified organism (principal); J18.9 Pneumonia, unspecified organism; N17.0 Acute kidney failure with tubular necrosis; N18.6 End stage renal disease; J96.22 Acute and chronic respiratory failure with hypercapnia; J96.21 Acute and chronic respiratory failure with hypoxia; I12.0 Hypertensive chronic kidney disease with stage 5 chronic kidney disease or end stage renal disease; T86.12 Kidney transplant failure; E46 Unspecified protein-calorie malnutrition; E87.2 Acidosis; F17.213 Nicotine dependence, cigarettes, with withdrawal; E83.39 Other disorders of phosphorus metabolism; D63.8 Anemia in other chronic diseases classified elsewhere; D72.819 Decreased white blood cell count, unspecified; E87.5 Hyperkalemia; G25.81 Restless legs syndrome; D53.9 Nutritional anemia, unspecified; J20.9 Acute bronchitis, unspecified; Y83.0 Surgical operation with transplant of whole organ as the cause of abnormal reaction of the patient, or of later complication, without mention of misadventure at the time of the procedure; M17.12 Unilateral primary osteoarthritis, left knee; F41.1 Generalized anxiety disorder; J43.9 Emphysema, unspecified; R74.8 Abnormal levels of other serum enzymes; R73.9 Hyperglycemia, unspecified; Z99.2 Dependence on renal dialysis; Z88.6 Allergy status to analgesic agent; Z80.8 Family history of malignant neoplasm of other organs or systems; Y92.89 Other specified places as the place of occurrence of the external cause; Z79.899 Other long term (current) drug therapy; Z68.23 Body mass index [BMI] 23.0-23.9, adult

== ENCOUNTER 2019-11-12 10:14 | Emergency (ER) | payer MEDICARE, OTHER ==
[~2019-11-12] VITALS: Ht 147.3 cm; Wt 51.3 kg
[~2019-11-12 10:14] MED LIST changes: +AURYXIA210 MG PO; +CITALOPRAM HYDR40 MG PO; +DOXYCYCLINE100 M3 PO; +LABETALOL HCL100 MG PO; +ROPINIROLE HYDRO1 MG PO; +SODIUM BICARBO650 MG PO
[2019-11-12 11:29] LABS: BASO % 0.2 % (0.0-1.0); EOS # 0.2 10*3/uL (0.0-0.4); EOS % 2.2 % (1.0-4.0); HEMATOCRIT 29.3 % (37.0-47.0); HEMOGLOBIN 9.5 g/dl (12.0-16.0); LYMPH % 17.7 % (27.0-41.0); MEAN CORPUSCULAR HGB 32.1 pg (27.0-31.0); MEAN CORPUSCULAR HGB CONC 32.4 g/dl (33.0-37.0); MEAN PLATELET VOLUME 10.2 fl (9.6-12.3); MONO # 0.9 10*3/uL (0.1-1.0); NEUT # 7.9 10*3/uL (2.3-7.9); NEUT % 71.4 % (47.0-73.0); PLATELET COUNT AUTOMATED 189 10*3/uL (130-400); RED BLOOD COUNT 2.96 10*6/uL (4.10-5.10); RED CELL DISTRI WIDTH 14.2 % (0-14.5)
[2019-11-12 11:38] LABS: ACT PARTIAL THROMBO TIME 25.2 SECONDS (20.0-32.1)
[2019-11-12 11:47] LABS: BILIRUBIN NEGATIVE (NEGATIVE); BLOOD NEGATIVE (NEGATIVE); CLARITY SL CLOUDY (CLEAR); COLOR YELLOW (YELLOW); GLUCOSE 1+ (NEGATIVE); KETONE NEGATIVE (NEGATIVE); LEUKO ESTERASE NEGATIVE (NEGATIVE); NITRITE NEGATIVE (NEGATIVE); PH 8.5 (5.0-9.0); SPECIFIC GRAVITY 1.005 (1.005-1.030); UROBILINOGEN 0.2 E.U./dl (0.2-1.0)
[2019-11-12 11:49] LABS: ALBUMIN 2.8 gm/dl (3.1-4.5); ALKALINE PHOSPHATASE 84 U/L (45-117); BUN 85 mg/dl (7-24); CHLORIDE 104 mmol/L (98-107); CREATININE 6.43 mg/dL (0.55-1.02); LIPASE 341 U/L (73-393); POTASSIUM 5.4 mmol/L (3.5-5.1); SGOT/AST 33 IU/L (3-35); SGPT/ALT 81 U/L (12-78); SODIUM 138 mmol/L (136-145); TOTAL PROTEIN 5.7 gm/dL (6.4-8.2)
[2019-11-12 11:51] LABS: TROPONIN I < 0.015 ng/ml (<0.045)
[2019-11-12 11:59] LABS: BACTERIA 1+; MUCOUS TRACE
== END 2019-11-12 15:19 | disposition home or self-care (01) ==
LOC: ED 10:14
PROVIDERS: Nurse Practitioner Family
DX: I12.0 Hypertensive chronic kidney disease with stage 5 chronic kidney disease or end stage renal disease (principal); N18.6 End stage renal disease; J44.9 Chronic obstructive pulmonary disease, unspecified; F17.200 Nicotine dependence, unspecified, uncomplicated; Z88.8 Allergy status to other drugs, medicaments and biological substances; Z79.899 Other long term (current) drug therapy

== ENCOUNTER → 2020-01-15 | Outpatient (CLI) | payer MEDICARE, OTHER ==
[2020-01-15 15:27] LABS: BASO % 0.4 % (0.0-1.0); EOS # 0.3 10*3/uL (0.0-0.4); EOS % 3.2 % (1.0-4.0); HEMATOCRIT 34.7 % (37.0-47.0); LYMPH % 20.9 % (27.0-41.0); MEAN CELL VOLUME 100.3 fl (81.0-99.0); MEAN CORPUSCULAR HGB 32.1 pg (27.0-31.0); MEAN PLATELET VOLUME 9.7 fl (9.6-12.3); MONO # 1.4 10*3/uL (0.1-1.0); MONO % 14.4 % (3.0-9.0); NEUT # 5.8 10*3/uL (2.3-7.9); NEUT % 60.8 % (47.0-73.0); PLATELET COUNT AUTOMATED 276 10*3/uL (130-400); RED BLOOD COUNT 3.46 10*6/uL (4.10-5.10); RED CELL DISTRI WIDTH 14.9 % (0-14.5); WHITE BLOOD COUNT 9.5 10*3/uL (4.8-10.8)
[2020-01-15 15:44] LABS: ALBUMIN 3.5 gm/dl (3.1-4.5); CREATININE 3.57 mg/dL (0.55-1.02); POTASSIUM 4.1 mmol/L (3.5-5.1); TOTAL PROTEIN 7.3 gm/dL (6.4-8.2)
[2020-01-15 15:50] LABS: FREE T4 1.02 ng/dl (0.76-1.46); THYROID STIM HORMONE (HS) 1.85 uIU/ml (0.358-4.75)
== END | disposition home or self-care (01) ==
LOC: LAB 14:52
PROVIDERS: Internal Medicine
DX: R53.83 Other fatigue (principal); Z94.0 Kidney transplant status

== ENCOUNTER → 2020-02-24 | Outpatient (CLI) | payer MEDICARE, OTHER ==
[2020-02-24 12:15] LABS: ACT PARTIAL THROMBO TIME 26.8 SECONDS (20.0-32.1); INTERNATIONAL NORM RATIO 1.1 (2.0-3.5)
== END | disposition home or self-care (01) ==
LOC: LAB 00:24 → EDSTATUS 13:00
PROVIDERS: Internal Medicine Nephrology
DX: R18.8 Other ascites (principal)

== ENCOUNTER 2020-03-15 12:13 | Emergency (ER) | payer MEDICARE, OTHER ==
[~2020-03-15] VITALS: Ht 149.8 cm; Wt 47.6 kg
[2020-03-15] MEDS ORDERED: ALBUTEROL2.5 MG/0.5 INH (13:22)
[2020-03-15] MEDS ORDERED: MEDROL DOSEPAK4 MG PO (13:22)
== END 2020-03-15 13:22 | disposition home or self-care (01) ==
LOC: ED 12:13
DX: L25.9 Unspecified contact dermatitis, unspecified cause (principal); Z76.0 Encounter for issue of repeat prescription; Z88.8 Allergy status to other drugs, medicaments and biological substances; Z79.899 Other long term (current) drug therapy

== ENCOUNTER 2020-05-09 14:15 | Emergency (ER) | payer MEDICARE, OTHER ==
[~2020-05-09] VITALS: Wt 45.4 kg
[~2020-05-09 14:15] MED LIST changes: +ALBUTEROL2.5 MG/0.5 INH
[2020-05-09 16:01] LABS: BASO % 0.6 % (0.0-1.0); EOS # 0.2 10*3/uL (0.0-0.4); EOS % 2.8 % (1.0-4.0); HEMATOCRIT 33.2 % (37.0-47.0); LYMPH # 1.4 10*3/uL (1.3-4.4); LYMPH % 21.3 % (27.0-41.0); MEAN CELL VOLUME 94.1 fl (81.0-99.0); MEAN CORPUSCULAR HGB 30.3 pg (27.0-31.0); MEAN CORPUSCULAR HGB CONC 32.2 g/dl (33.0-37.0); MEAN PLATELET VOLUME 9.7 fl (9.6-12.3); MONO # 0.8 10*3/uL (0.1-1.0); MONO % 11.5 % (3.0-9.0); NEUT # 4.2 10*3/uL (2.3-7.9); NEUT % 63.7 % (47.0-73.0); PLATELET COUNT AUTOMATED 228 10*3/uL (130-400); RED BLOOD COUNT 3.53 10*6/uL (4.10-5.10); RED CELL DISTRI WIDTH 14.6 % (0-14.5); WHITE BLOOD COUNT 6.7 10*3/uL (4.8-10.8)
[2020-05-09 16:15] LABS: INTERNATIONAL NORM RATIO 1.1 (2.0-3.5)
[2020-05-09 16:25] LABS: ALBUMIN 3.2 gm/dl (3.1-4.5); ALKALINE PHOSPHATASE 97 U/L (45-117); BUN 42 mg/dl (7-24); CHLORIDE 98 mmol/L (98-107); CREATININE 5.01 mg/dL (0.55-1.02); POTASSIUM 5.6 mmol/L (3.5-5.1); SGOT/AST 19 IU/L (3-35); SGPT/ALT 34 U/L (12-78); SODIUM 135 mmol/L (136-145); TOTAL PROTEIN 6.5 gm/dL (6.4-8.2); TROPONIN I < 0.015 ng/ml (<0.045)
[2020-05-09 16:44] LABS: BILIRUBIN NEGATIVE; BLOOD TRACE-LYSED (NEGATIVE); CLARITY CLOUDY (CLEAR); COLOR YELLOW (YELLOW); GLUCOSE TRACE; KETONE NEGATIVE; LEUKO ESTERASE 1+ (NEGATIVE); NITRITE NEGATIVE (NEGATIVE); PH >= 9.0 (4.5-8.0); UROBILINOGEN 0.2 E.U./dl (0.0-1.0)
[2020-05-09 16:45] LABS: BACTERIA 1+; EPITHELIAL CELLS TNTC; WBC 16-20 wbc/hpf (0-5)
[2020-05-09] MEDS ORDERED: CEFUROXIME AXE500 MG PO (18:09)
== END 2020-05-09 18:20 ==
LOC: ED 14:15
PROVIDERS: Physician Assistant
DX: N39.0 Urinary tract infection, site not specified (principal); I10 Essential (primary) hypertension; J44.9 Chronic obstructive pulmonary disease, unspecified; Z88.8 Allergy status to other drugs, medicaments and biological substances; Z79.899 Other long term (current) drug therapy

== ENCOUNTER 2020-05-19 14:31 | Emergency (ER) | payer MEDICARE, OTHER ==
[~2020-05-19] VITALS: Ht 149.8 cm; Wt 47.2 kg
[~2020-05-19 14:31] MED LIST changes: +CEFUROXIME AXE500 MG PO
[2020-05-19] MEDS ORDERED: CEPHALEXIN500 M1 PO (17:25)
== END 2020-05-19 17:37 | disposition home or self-care (01) ==
LOC: ED 14:31
DX: M79.674 Pain in right toe(s) (principal); I10 Essential (primary) hypertension; J44.9 Chronic obstructive pulmonary disease, unspecified; Z79.899 Other long term (current) drug therapy; Z79.2 Long term (current) use of antibiotics

== ENCOUNTER 2020-08-23 15:48 | Inpatient (IN) | payer MEDICARE, OTHER ==
[~2020-08-23] VITALS: Ht 149.8 cm; Wt 59.2 kg
[2020-08-23 15:48] VITALS: BP 147/78
[~2020-08-23 15:48] MED LIST changes: +AMBIEN10 M1 PO; +CEPHALEXIN500 M1 PO; +PRILOSEC20 M1 PO; +VENT7GM INH; +XANAX1 MG PO
[2020-08-23 16:39] LABS: BASO % 0.4 % (0.0-1.0); EOS # 0.3 10*3/uL (0.0-0.4); HEMATOCRIT 33.9 % (37.0-47.0); LYMPH # 1.3 10*3/uL (1.3-4.4); LYMPH % 13.3 % (27.0-41.0); MEAN CELL VOLUME 96.9 fl (81.0-99.0); MEAN CORPUSCULAR HGB 30.3 pg (27.0-31.0); MEAN CORPUSCULAR HGB CONC 31.3 g/dl (33.0-37.0); MEAN PLATELET VOLUME 10.2 fl (9.6-12.3); MONO % 10.3 % (3.0-9.0); NEUT # 6.8 10*3/uL (2.3-7.9); NEUT % 72.5 % (47.0-73.0); PLATELET COUNT AUTOMATED 214 10*3/uL (130-400); RED CELL DISTRI WIDTH 17.4 % (0-14.5); WHITE BLOOD COUNT 9.4 10*3/uL (4.8-10.8)
[2020-08-23 16:51] LABS: ACT PARTIAL THROMBO TIME 27.7 SECONDS (20.0-32.1); INTERNATIONAL NORM RATIO 1.1 (2.0-3.5)
[2020-08-23 17:03] LABS: ALBUMIN 2.9 gm/dl (3.1-4.5); ALKALINE PHOSPHATASE 122 U/L (45-117); BUN 101 mg/dl (7-24); CHLORIDE 101 mmol/L (98-107); POTASSIUM 5.9 mmol/L (3.5-5.1); SGOT/AST 13 IU/L (3-35); SGPT/ALT 16 U/L (12-78); SODIUM 137 mmol/L (136-145); TOTAL PROTEIN 6.5 gm/dL (6.4-8.2)
[2020-08-23 17:05] LABS: TROPONIN I < 0.015 ng/ml (<0.045)
[2020-08-23 18:00] VITALS: BP 132/78
[2020-08-23 22:00] LABS: BILIRUBIN Negative (Negative); BLOOD 2+ (Negative); CLARITY Turbid (Clear); COLOR Yellow (Yellow); GLUCOSE Trace (Negative); KETONE Negative (Negative); LEUKO ESTERASE 3+ (Negative); NITRITE Negative (Negative); PH 7.5 (4.5-8.0); SPECIFIC GRAVITY 1.015 (1.001-1.030); UROBILINOGEN 0.2 E.U./dl (0.0-1.0)
[2020-08-23 22:13] LABS: WBC TNTC wbc/hpf (0-5)
[2020-08-23] MEDS ORDERED: CITALOPRAM20 MG PO (22:59)
[2020-08-23] MEDS ORDERED: OMEPRAZOLE40 MG PO (23:14)
[2020-08-23 23:19] VITALS: BP 141/81
[2020-08-24 06:17] LABS: BASO % 0.4 % (0.0-1.0); EOS # 0.3 10*3/uL (0.0-0.4); EOS % 2.3 % (1.0-4.0); HEMATOCRIT 33.8 % (37.0-47.0); LYMPH # 1.1 10*3/uL (1.3-4.4); LYMPH % 9.8 % (27.0-41.0); MEAN CELL VOLUME 96.6 fl (81.0-99.0); MEAN CORPUSCULAR HGB 30.9 pg (27.0-31.0); MEAN PLATELET VOLUME 10.3 fl (9.6-12.3); MONO # 1.1 10*3/uL (0.1-1.0); NEUT # 8.5 10*3/uL (2.3-7.9); PLATELET COUNT AUTOMATED 224 10*3/uL (130-400); RED CELL DISTRI WIDTH 17.5 % (0-14.5)
[2020-08-24 06:36] LABS: ALBUMIN 3.2 gm/dl (3.1-4.5); CREATININE 10.7 mg/dL (0.55-1.02); TOTAL PROTEIN 7.1 gm/dL (6.4-8.2)
[2020-08-24 06:52] LABS: POTASSIUM 6.1 mmol/L (3.5-5.1)
[2020-08-24 12:00] VITALS: BP 121/75
[2020-08-24 16:00] VITALS: BP 141/86
[2020-08-24 20:00] VITALS: BP 130/67
[2020-08-25] VITALS: BP 144/80
[2020-08-25 12:00] VITALS: BP 151/87
[2020-08-25 16:00] VITALS: BP 155/93
[2020-08-25 20:00] VITALS: BP 155/88
[2020-08-26] VITALS: BP 146/82
[2020-08-26 08:00] VITALS: BP 142/92; BP 188/110
[2020-08-26 12:00] VITALS: BP 172/84
[2020-08-26 15:43] LABS: BASO % 0.4 % (0.0-1.0); EOS # 0.4 10*3/uL (0.0-0.4); EOS % 4.5 % (1.0-4.0); HEMATOCRIT 34.3 % (37.0-47.0); LYMPH # 1.3 10*3/uL (1.3-4.4); LYMPH % 15.8 % (27.0-41.0); MEAN CORPUSCULAR HGB 30.3 pg (27.0-31.0); MEAN CORPUSCULAR HGB CONC 30.9 g/dl (33.0-37.0); MEAN PLATELET VOLUME 9.9 fl (9.6-12.3); MONO # 1.2 10*3/uL (0.1-1.0); MONO % 14.4 % (3.0-9.0); NEUT # 5.2 10*3/uL (2.3-7.9); NEUT % 64.5 % (47.0-73.0); PLATELET COUNT AUTOMATED 205 10*3/uL (130-400); RED CELL DISTRI WIDTH 17.6 % (0-14.5)
[2020-08-26 15:58] LABS: CREATININE 4.97 mg/dL (0.55-1.02); POTASSIUM 4.5 mmol/L (3.5-5.1); TOTAL PROTEIN 7.1 gm/dL (6.4-8.2)
[2020-08-26 16:00] VITALS: BP 161/96
[2020-08-26] MEDS ORDERED: CIPRO250 MG PO ×2 (18:24)
== END 2020-08-26 19:53 | disposition home or self-care (01) | DRG 640 ==
LOC: ED 15:48 → 5E 17:18 → EDHOLD 17:18 → 5E 23:08
PROVIDERS: Family Medicine; ADMIT Internal Medicine; ATTEND Internal Medicine
PROC: 5A1D70Z Performance of Urinary Filtration, Intermittent, Less than 6 Hours Per Day (ICD-10-PCS; principal; 2020-08-25)
DX: E87.5 Hyperkalemia (principal); N18.6 End stage renal disease; I12.0 Hypertensive chronic kidney disease with stage 5 chronic kidney disease or end stage renal disease; E87.0 Hyperosmolality and hypernatremia; D64.9 Anemia, unspecified; J44.9 Chronic obstructive pulmonary disease, unspecified; D72.829 Elevated white blood cell count, unspecified; D72.810 Lymphocytopenia; Z88.6 Allergy status to analgesic agent; Z88.8 Allergy status to other drugs, medicaments and biological substances; Z82.49 Family history of ischemic heart disease and other diseases of the circulatory system; Z99.2 Dependence on renal dialysis; Z94.0 Kidney transplant status; Z91.15 Patient's noncompliance with renal dialysis

== ENCOUNTER 2020-09-05 10:14 | Inpatient (IN) | payer MEDICARE, OTHER ==
[~2020-09-05] VITALS: Ht 149.9 cm; Wt 65.1 kg
[2020-09-05] VITALS: BP 133/87
[~2020-09-05 10:14] MED LIST changes: +CIPRO250 MG PO; +CITALOPRAM20 MG PO; +OMEPRAZOLE40 MG PO
[2020-09-05 10:27] VITALS: BP 131/59
[2020-09-05 11:19] LABS: BASO % 0.4 % (0.0-1.0); EOS # 0.3 10*3/uL (0.0-0.4); EOS % 2.5 % (1.0-4.0); HEMATOCRIT 34.8 % (37.0-47.0); LYMPH # 1.5 10*3/uL (1.3-4.4); LYMPH % 12.8 % (27.0-41.0); MEAN CELL VOLUME 96.7 fl (81.0-99.0); MEAN PLATELET VOLUME 10.8 fl (9.6-12.3); MONO # 1.3 10*3/uL (0.1-1.0); MONO % 11.4 % (3.0-9.0); NEUT # 8.2 10*3/uL (2.3-7.9); NEUT % 72.5 % (47.0-73.0); NUCLEATED RED BLOOD CELL 0.4 % (0.0-0.0); PLATELET COUNT AUTOMATED 224 10*3/uL (130-400); WHITE BLOOD COUNT 11.4 10*3/uL (4.8-10.8)
[2020-09-05 11:36] LABS: ALBUMIN 2.9 gm/dl (3.1-4.5); ALKALINE PHOSPHATASE 146 U/L (45-117); BUN 103 mg/dl (7-24); CHLORIDE 99 mmol/L (98-107); CREATININE 9.46 mg/dL (0.55-1.02); POTASSIUM 5.9 mmol/L (3.5-5.1); SGOT/AST 55 IU/L (3-35); SGPT/ALT 80 U/L (12-78); SODIUM 135 mmol/L (136-145); TOTAL PROTEIN 6.9 gm/dL (6.4-8.2); TROPONIN I < 0.015 ng/ml (<0.045)
[2020-09-05 18:00] VITALS: BP 150/90; BP 150/902
[2020-09-05 20:00] VITALS: BP 133/87
[2020-09-05 20:53] LABS: CREATININE 9.73 mg/dL (0.55-1.02); POTASSIUM 5.8 mmol/L (3.5-5.1)
[2020-09-06] VITALS: BP 150/90
[2020-09-06 07:20] LABS: BASO % 0.3 % (0.0-1.0); EOS # 0.4 10*3/uL (0.0-0.4); EOS % 3.4 % (1.0-4.0); HEMATOCRIT 32.1 % (37.0-47.0); LYMPH # 1.2 10*3/uL (1.3-4.4); LYMPH % 11.3 % (27.0-41.0); MEAN CELL VOLUME 97.3 fl (81.0-99.0); MEAN CORPUSCULAR HGB 30.6 pg (27.0-31.0); MEAN CORPUSCULAR HGB CONC 31.5 g/dl (33.0-37.0); MEAN PLATELET VOLUME 10.8 fl (9.6-12.3); MONO # 1.3 10*3/uL (0.1-1.0); NEUT % 72.6 % (47.0-73.0); NUCLEATED RED BLOOD CELL 0.2 % (0.0-0.0); PLATELET COUNT AUTOMATED 217 10*3/uL (130-400); RED CELL DISTRI WIDTH 19.4 % (0-14.5)
[2020-09-06 07:36] LABS: ALBUMIN 2.9 gm/dl (3.1-4.5); CREATININE 9.49 mg/dL (0.55-1.02); POTASSIUM 5.9 mmol/L (3.5-5.1); TOTAL PROTEIN 6.8 gm/dL (6.4-8.2)
[2020-09-06 08:00] VITALS: BP 136/78; BP 142/76
[2020-09-06 12:00] VITALS: BP 144/75
[2020-09-06 16:00] VITALS: BP 155/65
[2020-09-06 20:00] VITALS: BP 151/88
[2020-09-07] VITALS: BP 146/85
[2020-09-07 06:35] LABS: BASO % 0.2 % (0.0-1.0); EOS # 0.3 10*3/uL (0.0-0.4); EOS % 3.3 % (1.0-4.0); HEMATOCRIT 33.1 % (37.0-47.0); LYMPH # 1.1 10*3/uL (1.3-4.4); MEAN CELL VOLUME 96.5 fl (81.0-99.0); MEAN CORPUSCULAR HGB CONC 31.1 g/dl (33.0-37.0); MEAN PLATELET VOLUME 10.5 fl (9.6-12.3); MONO # 1.4 10*3/uL (0.1-1.0); MONO % 14.7 % (3.0-9.0); NEUT # 6.4 10*3/uL (2.3-7.9); NEUT % 69.4 % (47.0-73.0); PLATELET COUNT AUTOMATED 200 10*3/uL (130-400); RED BLOOD COUNT 3.43 10*6/uL (4.10-5.10); RED CELL DISTRI WIDTH 19.7 % (0-14.5); WHITE BLOOD COUNT 9.3 10*3/uL (4.8-10.8)
[2020-09-07 06:54] LABS: ALBUMIN 2.7 gm/dl (3.1-4.5); CREATININE 6.39 mg/dL (0.55-1.02); TOTAL PROTEIN 6.5 gm/dL (6.4-8.2)
[2020-09-07 06:56] LABS: POTASSIUM 4.9 mmol/L (3.5-5.1)
[2020-09-07 08:00] VITALS: BP 151/84
[2020-09-07 09:28] LABS: BILIRUBIN Negative (Negative); BLOOD 3+ (Negative); CLARITY Clear (Clear); COLOR Yellow (Yellow); GLUCOSE Trace (Negative); KETONE Negative (Negative); LEUKO ESTERASE 2+ (Negative); NITRITE Negative (Negative); UROBILINOGEN 0.2 E.U./dl (0.0-1.0)
[2020-09-07 09:36] LABS: RBC TNTC rbc/hpf (0-2)
[2020-09-07 09:37] LABS: BACTERIA 1+
[2020-09-07 12:00] VITALS: BP 134/64
[2020-09-07 16:00] VITALS: BP 153/89
[2020-09-07 20:00] VITALS: BP 125/89
[2020-09-08] VITALS: BP 116/61
[2020-09-08 06:56] LABS: BASO % 0.2 % (0.0-1.0); EOS # 0.4 10*3/uL (0.0-0.4); EOS % 4.1 % (1.0-4.0); HEMATOCRIT 32.8 % (37.0-47.0); LYMPH % 10.8 % (27.0-41.0); MEAN CELL VOLUME 97.9 fl (81.0-99.0); MEAN CORPUSCULAR HGB 30.4 pg (27.0-31.0); MEAN CORPUSCULAR HGB CONC 31.1 g/dl (33.0-37.0); MEAN PLATELET VOLUME 10.6 fl (9.6-12.3); MONO # 1.4 10*3/uL (0.1-1.0); MONO % 14.1 % (3.0-9.0); NEUT # 6.8 10*3/uL (2.3-7.9); NEUT % 70.5 % (47.0-73.0); PLATELET COUNT AUTOMATED 188 10*3/uL (130-400); RED BLOOD COUNT 3.35 10*6/uL (4.10-5.10); RED CELL DISTRI WIDTH 19.5 % (0-14.5); WHITE BLOOD COUNT 9.6 10*3/uL (4.8-10.8)
[2020-09-08 07:30] LABS: CREATININE 7.26 mg/dL (0.55-1.02); POTASSIUM 5.8 mmol/L (3.5-5.1)
[2020-09-08 12:00] VITALS: BP 135/74
[2020-09-08 16:00] VITALS: BP 155/96
[2020-09-08 20:00] VITALS: BP 159/83
[2020-09-09] VITALS: BP 147/86
[2020-09-09 06:52] LABS: CREATININE 4.74 mg/dL (0.55-1.02)
[2020-09-09 07:07] LABS: POTASSIUM 4.4 mmol/L (3.5-5.1)
[2020-09-09 08:00] VITALS: BP 135/75
[2020-09-09 12:00] VITALS: BP 135/81
[2020-09-09 16:00] VITALS: BP 155/90
[2020-09-09] MEDS ORDERED: Percocet 325 MG1 TAB PO (17:46)
== END 2020-09-09 19:45 | disposition home or self-care (01) | DRG 640 ==
LOC: ED 10:14 → 5E 11:58 → EDHOLD 11:58 → 5E 16:24
PROVIDERS: Nurse Practitioner; Student in an Organized Health Care Education/Training Program; ADMIT Internal Medicine; ATTEND Internal Medicine
PROC: 5A1D70Z Performance of Urinary Filtration, Intermittent, Less than 6 Hours Per Day (ICD-10-PCS; principal; 2020-09-06)
PROC: 5A1D70Z Performance of Urinary Filtration, Intermittent, Less than 6 Hours Per Day (ICD-10-PCS; 2020-09-08)
DX: E87.5 Hyperkalemia (principal); N18.6 End stage renal disease; N17.9 Acute kidney failure, unspecified; N39.0 Urinary tract infection, site not specified; I13.2 Hypertensive heart and chronic kidney disease with heart failure and with stage 5 chronic kidney disease, or end stage renal disease; I50.32 Chronic diastolic (congestive) heart failure; E44.0 Moderate protein-calorie malnutrition; N25.81 Secondary hyperparathyroidism of renal origin; D53.9 Nutritional anemia, unspecified; E83.39 Other disorders of phosphorus metabolism; F17.200 Nicotine dependence, unspecified, uncomplicated; J44.9 Chronic obstructive pulmonary disease, unspecified; Z99.2 Dependence on renal dialysis; Z91.15 Patient's noncompliance with renal dialysis; Z88.5 Allergy status to narcotic agent; Z88.6 Allergy status to analgesic agent; Z79.899 Other long term (current) drug therapy; Z82.49 Family history of ischemic heart disease and other diseases of the circulatory system; Z79.51 Long term (current) use of inhaled steroids; Z68.28 Body mass index [BMI] 28.0-28.9, adult

== ENCOUNTER 2020-09-29 19:19 | Emergency (ER) | payer MEDICARE, OTHER ==
[~2020-09-29] VITALS: Ht 152.4 cm; Wt 62.1 kg
[~2020-09-29 19:19] MED LIST changes: +Percocet 325 MG1 TAB PO
== END 2020-09-29 20:46 ==
LOC: ED 19:22
DX: I46.9 Cardiac arrest, cause unspecified (principal); Z88.8 Allergy status to other drugs, medicaments and biological substances; Z79.899 Other long term (current) drug therapy; Z98.890 Other specified postprocedural states